=== PATIENT | male | born 1975 | race Caucasian/White ===

== ENCOUNTER → 2019-01-12 | Outpatient (CLI) | payer OTHER ==
[~2019-01-12] MED LIST: COZAAR 25 MG TA25 M2 PO; METFORMIN HCL500 MG PO; METHOCARBAMOL500 M2 PO; NEURONTIN600 MG PO; NOVOLOG100 UNIT/1 SUBQ; TOPROL XL25 MG PO
--- NOTE | ~2019-01-12 | PAINCON ---
[address] [address] PAIN MANAGEMENT CONSULTATION Name: MALLORY SALEEM Room: [facility] KELVIN CarieMayito#: [id number] Admission: 01/12/19 Attend Phys: James Woods MD Discharge: Date of : 73 Report #: [id number] THIS REPORT FOR: //name// CC: COLIN Woods DATE OF SERVICE: 01/12/2019 CHIEF COMPLAINT: Pain down into my low back and into the left foot with numbness and weakness. HISTORY: The patient is a 43-year-old gentleman who has been referred to the pain clinic for evaluation. The patient states that he was working. He was cutting down a tree at his mother's house in November. Noticed a popping sensation in his back. He has been experiencing pain down in the left hip, leg and into his foot over the last 2 months. Any activity exacerbates his discomfort. Lifting, bending, standing, walking are problematic. He describes his pain as and tense. Rates it as 5/10. He has been using gabapentin and found that this medication has been helpful. Also, has used methocarbamol and finds that this medication is helpful. He has been using nonsteroidal anti-inflammatory medication. Naprosyn 3-5 tablets per day. Overall, these medications have helped his pain about 80%. He denies any new bowel or bladder dysfunction. Denies any saddle area discomfort. He has been told that he has sciatica. Does have diabetes. Notes that his blood A1c is about 7. He has been off work because of the pain. Did undergo an injection into the buttocks area with the steroid. He notes that helped his pain as well. He has come to the pain clinic for evaluation. States that he had a CT that showed some problems with his back. Describes as continuous, burning, shooting, cramping, aching, throbbing, pounding, sharp, stabbing, and tender. Rates it as a 7/10 today. ALLERGIES: No known drug allergies. CURRENT MEDICATIONS: Gabapentin 800 mg every 4-6 hours one to two tablets. Methocarbamol 500 mg every 4-6 hours p.r.n. 6 tablets, Naprosyn 375 mg 3-5 tablets daily, metformin 500 mg 2 tablets, losartan 100 mg, metoprolol 25 mg one-half tablet, insulin 25 units. PAST MEDICAL HISTORY: Diabetes, hypertension, stomach problems. PAST SURGICAL HISTORY: Tonsillectomy at age 4. Wart removal in the buttocks 2013. 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 He has been off work [place] 2 [place] [address] PAIN MANAGEMENT CONSULTATION Name: MALLORY SALEEM Room: [facility]ER Nickerson#: [id number] Admission: 01/12/19 Attend Phys: James Woods MD Discharge: Date of : 73 Report #: [id number] REVIEW OF SYSTEMS: Generally good health, fatigue, weakness, wears glasses, blurred vision, loss of appetite, abdominal pain, frequent urination, sexual difficulty, joint pain, joint stiffness and swelling, weakness of muscles and joints, back pain, difficulty walking, numbness and tingling sensation, nervousness, slow to heal. LABORATORY DATA: CT of the lumbar spine provided from the [place] dated 11/06/2018, reveals at the L4 level and above lumbar disk and vertebral bodies showed no significant abnormality. Central canal and foramen are patent. At the L5-S1 level, there intervertebral disk height is moderately short period disk vacuum phenomena is present. A moderate disk bulge narrows the AP diameter of the midline thecal sac about 8 mm without significant canal stenosis. The bilateral recesses are up to moderately to severely stenotic. Mild facet arthropathy contributes. Moderate left, cxojcfnm-cc-zxorafcp right foraminal stenosis is estimated. IMPRESSION: L5-S1 up to pyolcism-kh-hyfcxd bilateral recess and moderate left bmwm-jd-koalrrxy right foraminal stenosis secondary to degenerative disease. PAIN CLINIC ASSESSMENT/PQRS: 1. The patient is not being treated for osteoarthritis or rheumatoid arthritis. 2. Height 6 feet 0, weight 247 pounds, BMI 33.8. 3. VITAL SIGNS: Blood pressure 119/68, heart rate 79, respiratory rate 16, room air saturation 95%, temperature 98.4. 4. Pain intensity 5/10. 5. Fall history: The patient has not fallen in the last 3 months. 6. Blood thinner. The patient is not on a blood thinning medication. 7. Hypertension. The patient is being treated for hypertension. 8. Opioids greater than 6 weeks. The patient is not on opioid regimen. 9. Risk assessment tool, low for opioid use. 10. Functional assessment tool. 11. Recreational drug use. The patient denies use of recreational drugs. 12. Tobacco: The patient smokes 1 pack of cigarettes per day. 13. Alcohol: The patient occasionally drinks alcoholic beverages, has drink 6-12 beers in a 2-day. Does not use it for a drink for quite some time. PHYSICAL EXAMINATION: GENERAL: The patient is a well-developed, well-nourished white male. Appears his stated age. He is alert, oriented x 3. His affect is appropriate. Speech is fluent. HEENT: Normocephalic, atraumatic. Extraocular eye muscles intact. Sclerae nonicteric. Mucous membranes are moist. NECK: Without adenopathy or JVD. EXTREMITIES: Upper extremity muscle strength is judged to be 5/5 for the major muscle groups in the upper extremity. Deep tendon reflexes +1 [place] [address] PAIN MANAGEMENT CONSULTATION Name: MALLORY SALEEM Room: [facility]#: [id number] Admission: 01/12/19 Attend Phys: James Woods MD Discharge: Date of : 73 Report #: [id number] bilaterally. The patient is able to lean forward, had some increased pain and discomfort with pain down into the left leg to the level of his foot with numbness and tingling. Left lateral bending, left lateral rotation were not very problematic, but does cause some increased discomfort in the left lower extremity. The patient has a positive straight leg raise on the left. IMPRESSION: 1. Lumbar radiculopathy. 2. Diabetes. 3. Hypertension. RECOMMENDATIONS: We discussed treatment options with the patient. A model was used to indicate the area of probable pathology. The patient's CT was discussed with him and his mother in detail. A program indicating and showing the effects of lumbar radiculopathy was provided. The patient states that he had a good understanding of what was going on. We discussed the risks and benefits of an epidural steroid injection. They could include but are not limited to infection, worsening pain, no improvement in pain and the patient elects to proceed. PROCEDURE NOTE: The patient was taken to the procedure area. He was then assisted in getting on examination table. His back was sterilely prepped with a Betadine solution. Fluoroscopy using anterior, posterior as well as lateral viewing were implemented. A 0.25% bupivacaine using a 25-gauge needle was then used to anesthetize the L5-S1 area to the left using a midline approach. A 17-gauge Tuohy with loss of resistance technique was used to gain access via epidural space. There was no CSF, heme or paresthesia. Total of 80 mg Depo-Medrol, 40 mg of triamcinolone and 2 mL of 0.25% bupivacaine was injected. The patient tolerated the procedure well. Approximately 15 seconds fluoroscopy time was used. The patient remained in the pain clinic for an appropriate amount of time. He will follow up in the future as needed. We would like to thank you for letting us to participate in his care. We hope he continues to improve. By: [id number]. Mando Woods MD /ANDIE
== END | disposition home or self-care (01) ==
LOC: M.PC 10:00
DX: M51.16 Intervertebral disc disorders with radiculopathy, lumbar region (principal); M48.061 Spinal stenosis, lumbar region without neurogenic claudication; G89.29 Other chronic pain; I10 Essential (primary) hypertension; E11.9 Type 2 diabetes mellitus without complications; F17.210 Nicotine dependence, cigarettes, uncomplicated; K92.9 Disease of digestive system, unspecified; Z79.899 Other long term (current) drug therapy; Z98.890 Other specified postprocedural states

== ENCOUNTER → 2019-02-09 | Outpatient (CLI) | payer OTHER ==
[~2019-02-09] MED LIST changes: +FLEXERIL PO; +MOBIC15 MG PO; +NAPROXEN PO
== END | disposition home or self-care (01) ==
LOC: M.PC 05:02
DX: M54.17 Radiculopathy, lumbosacral region (principal); E11.9 Type 2 diabetes mellitus without complications; I10 Essential (primary) hypertension; F17.210 Nicotine dependence, cigarettes, uncomplicated; Z79.899 Other long term (current) drug therapy; Z79.4 Long term (current) use of insulin; Z98.890 Other specified postprocedural states

== ENCOUNTER → 2019-03-16 | Outpatient (CLI) | payer OTHER ==
[~2019-03-16] MED LIST changes: +AMITRIPTYLINE H25 M2 PO; +NEURONTIN800 MG PO
--- NOTE | ~2019-03-16 | PAINCON ---
[address] [address] PAIN MANAGEMENT CONSULTATION Name: STIVENMALLORY River Room: [facility] KELVIN Liya#: [id number] Admission: 03/16/19 Attend Phys: James Woods MD Discharge: Date of : 73 Report #: [id number] THIS REPORT FOR: //name// CC: Bhupinder Woods DATE OF SERVICE: 03/16/2019 CHIEF COMPLAINT: Continued pain in the low back area with pain in the area of the right big toe and tingling down into the left foot. HISTORY: The patient is a 44-year-old gentleman who has been seen in the pain clinic because of lumbar radiculopathy. Notes that pain continues to radiate down into his hips bilaterally. He finds it is sometimes difficult to walk because of this discomfort. He experiences a sharp, stabbing pain with numbness that radiates down into his toes at times. Has bilateral feet burning. The burning pain has improved somewhat since the onset of the first injection. He finds that the muscle relaxant medications, Flexeril, seems to provide the most benefit. He is using the gabapentin medication. He is not having any problems with the meloxicam. Notes that the pain is worse when he is walking, standing, going from a sitting to a standing position, bending, and turning. ALLERGIES: No known drug allergies. CURRENT MEDICATIONS: Gabapentin 800 mg every 4-6 hours p.r.n., methocarbamol 500 mg every 4-6 hours p.r.n. muscle spasms. The patient thinks that the Flexeril medication provides better muscle relaxation than the methocarbamol. Naprosyn 375 mg has been discontinued and the patient is using meloxicam. Metformin 500 mg 2 tablets, lisinopril 100 mg, metoprolol 25 mg one half tablet daily, and insulin 25 units. PAIN CLINIC ASSESSMENT AND PQRS: 1. The patient is not being treated for osteoarthritis or rheumatoid arthritis. 2. Height 6 feet 0, weight 236 pounds, BMI is 32.0. Vital signs: Blood pressure 153/97, respiratory rate 16, room air saturation is 98%, heart rate is 88, temperature is 98.2. Pain intensity is 5/10. 3. Fall history: The patient has not fallen in the last 3 months. 4. Blood thinner. The patient is not on a blood thinning medication. 5. Hypertension. The patient is being treated for hypertension. 6. Opioids greater than 6 weeks. The patient is not being treated on a regular basis with opioid medications. 7. Risk assessment tool, low for opioids. 8. Functional assessment tool. 9. Recreational drugs. The patient denies use of recreational drugs. 10. Tobacco: The patient smokes 1 pack of cigarettes per day, have discussed the benefits [place] [address] PAIN MANAGEMENT CONSULTATION Name: MALLORY SALEEM Room: [facility]#: [id number] Admission: 03/16/19 Attend Phys: James Woods MD Discharge: Date of : 73 Report #: [id number] 11. Alcohol: The patient drinks 6-12 beers in 2 days. PHYSICAL EXAMINATION: GENERAL: The patient is a well-developed, well-nourished white male. Appears his stated age. He is alert and oriented x 3. His affect is appropriate. Speech is fluent. The patient is somewhat emotional. Nurse states that the patient is somewhat emotional, labile, and cried because of the continued pain and discomfort. HEENT: Normocephalic, atraumatic. Extraocular eye muscles intact. Sclerae nonicteric. Mucous membranes are moist. NECK: Without adenopathy or JVD. EXTREMITIES: Upper extremity muscle strength judged to be 5/5 for the major muscle groups in the upper extremity. Deep tendon reflexes +1. The patient has some pain and discomfort while leaning forward. Has pain and discomfort that radiates down into his leg on the L5-S1 dermatomal distribution. Has numbness and tingling involving his feet on the left. Note some involvement and numbness of his great toe on the right side. IMPRESSION: 1. Lumbar radiculopathy with L5-S1 dermatomal distribution on the left with some involvement on the right. 2. Diabetes. 3. Hypertension. RECOMMENDATIONS: We discussed treatment options with the patient. Risks and benefits of an epidural steroid injection were again discussed. Possible complications of the procedure, which could include but are not limited to infection, worsening of pain, no improvement in pain, bleeding and the patient elects to proceed. PROCEDURE NOTE: The patient was taken to the procedure area. He was then assisted in getting on examination table. A pillow was placed under his abdomen to bolster his positioning. His back was sterilely prepped with a Betadine solution. Fluoroscopy using anterior, posterior as well as lateral viewing were implemented. A 17-gauge Tuohy was then advanced in the L5-S1 area. After this area had been anesthetized using a 25-gauge needle and 0.25% bupivacaine. A 17-gauge Tuohy was then advanced using the L5-S1 interspace. There was no CSF, heme, or paresthesia. A total of 80 mg Depo-Medrol, 40 mg triamcinolone and 2 mL of 0.25% bupivacaine was injected. The patient was also provided with a renewal of his medications. He will continue with Meloxicam 15 mg 1 p.o. daily, Flexeril 10 mg 1 p.o. t.i.d. The patient will also try Elavil 25 mg and increase this to 50 mg at bedtime. Hopefully, this will help with some of the pain, numbness, and tingling. As well we hope this will help with sleep and improve the patient[place] [address] PAIN MANAGEMENT CONSULTATION Name: STIVENMALLORY River Room: [facility]#: [id number] Admission: 03/16/19 Attend Phys: James Woods MD Discharge: Date of : 73 Report #: [id number] We would like to thank you for letting us participate in his care. We hope he continues to improve. By: [id number]. Mando Woods MD /nt
== END | disposition home or self-care (01) ==
LOC: M.PC 04:53
DX: M54.16 Radiculopathy, lumbar region (principal); E11.9 Type 2 diabetes mellitus without complications; I10 Essential (primary) hypertension; F17.210 Nicotine dependence, cigarettes, uncomplicated; Z79.899 Other long term (current) drug therapy; Z79.4 Long term (current) use of insulin

== ENCOUNTER → 2019-03-30 | Outpatient (CLI) | payer OTHER ==
--- NOTE | ~2019-03-30 | PAINCON ---
[address] [address] PAIN MANAGEMENT CONSULTATION Name: MALLORY SALEEM Room: [facility] Nickerson#: [id number] Admission: 03/30/19 Attend Phys: James Woods MD Discharge: Date of : 73 Report #: [id number] THIS REPORT FOR: //name// CC: Bhupinder Woods DATE OF SERVICE: 03/30/2019 CHIEF COMPLAINT: Pain, chronic low back pain has improved after the last injection. HISTORY: The patient is a 44-year-old gentleman who has been seen in the pain clinic because of chronic pain. As you may recall, he has been experiencing pain, which has been quite debilitating. He has been off work for a period of time because of this. He had pain that radiated down into his left leg involving his foot with tingling. Also, has some discomfort in his right great toe. He underwent an epidural steroid injection at the last visit. He has noted improvement in his pain and discomfort. Notes that the pain has decreased from a "15" down to a 3 at this juncture. He is able to engage in activities of daily living with less discomfort. He has returned today and would like to have his medications of Flexeril, meloxicam and Elavil renewed. He feels that his strength is improving. He is able to increase his flexibility with less pain and discomfort. Has some occasional discomfort with activity. Notes that continues stretching and activities continues to improve his pain. He feels that his pain is 50-60% improved. ALLERGIES: No known drug allergies. CURRENT MEDICATIONS: Gabapentin 800 mg every 4 hours p.r.n., Flexeril 10 mg 1 p.o. t.i.d., meloxicam 15 mg 1 p.o. daily, metformin 500 mg 2 tablets, lisinopril 100 mg, metoprolol 25 mg 1/2 tablet daily, and insulin 25 units. PAIN CLINIC ASSESSMENT AND PQRS: 1. The patient is not being treated for osteoarthritis or rheumatoid arthritis. 2. Height 6 feet 0 inches, weight 218 pounds, BMI is 32. 3. Vital Signs: Blood pressure 120/73, heart rate 95, respiratory rate 16, room air saturation 99%, and temperature 98.4. 4. Pain intensity 3-4/10. 5. Fall history: The patient has not fallen in the last 3 months. 6. Blood thinner. The patient is not on a blood thinning medication. 7. Hypertension. The patient is being treated for hypertension. 8. Opioids greater than 6 weeks. The patient is not being treated with opioids on a regular basis. 9. Risk assessment tool, low for opioid use. 10. Functional assessment tool. 11. Recreational drug use. The patient denies [place] [address] PAIN MANAGEMENT CONSULTATION Name: STIVENMALLORY J Room: [facility]#: [id number] Admission: 03/30/19 Attend Phys: James Woods MD Discharge: Date of : 73 Report #: [id number] 12. Tobacco: The patient smokes 1-pack of cigarettes per day. We have discussed the benefits of smoking cessation. 13. Alcohol: The patient drinks 6-12 beers in 2-day. PHYSICAL EXAMINATION: GENERAL: The patient is a well-developed, well-nourished white male. Appears his stated age. He is alert and oriented x 3. His affect is appropriate. Speech is fluent. The patient is more stable emotionally. He is not crying, which was the case in the last visit. HEENT: Normocephalic, atraumatic. Extraocular eye muscles intact. Sclerae nonicteric. Mucous membranes are moist. NECK: Without adenopathy or JVD. EXTREMITIES: Upper extremity muscle strength judged to be 5/5 for the major muscle groups in the upper extremity. Deep tendon reflexes +1. The patient has some pain and discomfort when he is leaning forward. The patient has pain that is radiating down to the left and down into his legs in the L4-L5 dermatomal distribution much reduced. Had numbness and tingling in his feet on the left. Had some involvement of his great toe on the right. IMPRESSION: 1. Improved lumbar radiculopathy after the last epidural steroid injection third in the set of 3. 2. Diabetes. 3. Hypertension. RECOMMENDATIONS: 1. We discussed treatment options with the patient. At this juncture, we will continue with his medications of meloxicam 15 mg. He has stopped taking this medication should he note some problems with his GI discomfort. He will also continue with Elavil 25 mg at bedtime. This medication can be helpful with chronic pain. It is helpful with sleep. He can decrease some of the nerve pain, which is involved with lumbar radiculopathy. 2. Flexeril 10 mg 1 p.o. t.i.d. The patient feels that this medication has been more helpful than the methocarbamol he was taken. A renewal of these medications for the next 3 months have been provided. The patient will follow up in the future as needed. Hopefully, things will continue to go well. The patient feels that he is back to baseline. He would like to return to work. We have signed a document indicating that the patient can return to work without any encumbrances. He feels that he can do his job. We would like to thank you for letting us participate in his care. We hope he continues to improve. By: [id number]. Mando Woods MD /nt
== END ==
LOC: M.PC 05:23
DX: M54.16 Radiculopathy, lumbar region (principal); I10 Essential (primary) hypertension; E11.9 Type 2 diabetes mellitus without complications; F17.210 Nicotine dependence, cigarettes, uncomplicated; Z79.899 Other long term (current) drug therapy; Z79.891 Long term (current) use of opiate analgesic; Z72.89 Other problems related to lifestyle